=== PATIENT | female | born 1990 | race Caucasian/White ===

== ENCOUNTER 2018-01-23 21:04 | Emergency (ER) | payer OTHER ==
[2018-01-23 21:30] VITALS: BP 114/71; PULSE 91; RESP 16; TEMP 98.7; O2SAT 98
--- NOTE | 2018-01-23 22:22 | ED PDOC ---
HPI: Skin/Bite Injury Time Seen by Provider: 01/23/18 21:34 Chief Complaint (Nursing): Abnormal Skin Integrity History Per: Patient History/Exam Limitations: no limitations Additional Complaint(s): 27 yo F reports red painless non-pruritic red rash to the neck, upper chest and shoulder x 5 days, began when she returned from her trip to [place]. Reports that her boyfriend has a similar rash, but his is more pronounced and has spread to his entire body. Otherwise patient reports (-) throat swelling, (-) tongue / lip swelling, (-) dyspnea, (-) cough, (-) wheezing, (-) abdominal pain , (-) nausea (-) vomiting, (-) fever, (-) URI, (-) joint pain, (-) new medications, (-) taking any medications currently, (+) new food - ate oxtail at the resort in [place], but did not develop rash until she returned to the , (- ) changes in soap/lotions. Past Medical History Vital Signs: Last Vital Signs Temp 98.7 F 01/23/18 21:27 Pulse 91 H 01/23/18 21:27 Resp 16 01/23/18 21:27 BP 114/71 01/23/18 21:27 Pulse Ox 98 01/23/18 21:27 - Medical History PMH: No Chronic Diseases - Family History Family History: States: No Known Family Hx - Home Medications Home Medications: Ambulatory Orders Medication Instructions Recorded Hydrocortisone Melissa 0.2% Cr 1 ea TP BID #15 tube 01/23/18 [[facility]] - Allergies Allergies/Adverse Reactions: Allergies Allergy/AdvReac Type Severity Reaction Status Date / Time No Known Allergies Allergy Verified 01/23/18 21:27 Review of Systems Constitutional: Negative for: Fever, Malaise ENT: Negative for: Throat Pain, Throat Swelling Cardiovascular: Negative for: Chest Pain Respiratory: Negative for: Cough, Shortness of Breath Skin: Positive for: Rash, Lesions. Negative for: Jaundice, Bruising Physical Exam - Physical Exam Comments: GENERAL APPEARANCE: Patient is awake, alert, oriented x 3, in no acute distress. SKIN: (+) multiple small erythematous circular pustular lesions to the shoulders, neck and upper chest. Otherwise (-) excoriations, (-) drainage, (-) crusting of lesions is present. HENT: (-) conjunctival injection, (-) chemosis. Oropharynx: clear (-) tongue or lip swelling, (-) tonsillar exudates, (-) erythema. Airway: patent (-) stridor, (-) hoarseness. Mucous membranes moist. Nares: Patent (-) rhinorrhea. NECK: (-) lymphadenopathy, (-) tenderness. CARDIOVASCULAR: Normal rate and rhythm. (-) murmur, (-) gallop. CHEST: (-) rales, (-) wheezing, (-) dyspnea, (-) stridor. Breath sounds equal bilaterally. ABDOMEN: Soft. (-) tenderness, (-) distention, (-) HSM. NEURO: Mental status: Patient is alert, oriented, and with normal strength and tone. - ECG O2 Sat by Pulse Oximetry: 98 Medical Decision Making Medical Decision Making: Impression : heat rash Advised to follow up with primary care physician in 1-2 days without fail. Advised to take medication as prescribed. Return to the emergency room at any time for any new or worsening symptoms. Patient states she fully agrees with and understands discharge instructions. States that she agrees with the plan and disposition. Verbalized and repeated discharge instructions and plan. I have given the patient opportunity to ask any additional questions. Disposition - Clinical Impression Clinical Impression: Heat rash - Patient ED Disposition Is Patient to be Admitted: No Counseled Patient/Family Regarding: Diagnosis, Need For Followup, Rx Given - Disposition Referrals: jA Sen MD [Staff Provider] - Disposition: Routine/Home Disposition Time: 22:15 Condition: STABLE Additional Instructions: Thank you for letting us take care of you today. You were treated for heat rash. The emergency medical care you received today was directed at your acute symptoms. If you were prescribed any medication, please fill it and take as directed. It may take several days for your symptoms to resolve. Return to the Emergency Department if your symptoms worsen, do not improve, or if you have any other problems. Please contact your doctor in 2 days for re-evaluation and follow up / or call one of the physicians/clinics you have been referred to that are listed on the Patient Visit Information form that is included in your discharge packet. Bring any paperwork you were given at discharge with you along with any medications you are taking to your follow up visit. Our treatment cannot replace ongoing medical care by a primary care provider (PCP) outside of the emergency department. Thank you for allowing the [facility] team to be part of your care today. Prescriptions: Hydrocortisone Melissa 0.2% Cr [[facility]] 1 ea TP BID #15 tube Instructions: Heat Rash ([facility] Heat) - PA / [employer] O[employer]ATOR / Resident Statement MD/DO has reviewed & agrees with the documentation as recorded.
== END 2018-01-23 22:45 | disposition home or self-care (01) ==
LOC: H.ER 21:04
DX: L74.0 Miliaria rubra (principal)